=== PATIENT | female | born 1980 | race Asian ===

== ENCOUNTER 2016-10-12 10:18 | Inpatient (IN) | payer OTHER ==
[~2016-10-12] VITALS: Ht 165.1 cm; Wt 75.9 kg
[2016-10-12] MEDS ORDERED: LACTATED RINGERS 1,000 ML IV SCH ×2 (10:44→11:00)
[2016-10-12] MEDS ORDERED: OXYTOCIN 30U/ 0.9% NaCL 500ML 500 ML IV SCH (10:44)
[2016-10-12 10:47] VITALS: BP 107/72
[2016-10-12] MEDS ORDERED: SODIUM CITRATE/CITRIC ACID 30 ML UDC PO ONE (11:00)
[2016-10-12] MEDS ORDERED: LACTATED RINGERS 1,000 ML IVBOLUS ONE (11:00)
[2016-10-12] MEDS ORDERED: METOCLOPRAMIDE 5 MG/ML, 2ML IV ONE (11:00)
[2016-10-12] MEDS ORDERED: OXYTOCIN 30U/ 0.9% NaCL 500ML 500 ML ONE (11:31)
[2016-10-12] MEDS ORDERED: METOCLOPRAMIDE 5 MG/ML, 2ML ONE (11:31)
[2016-10-12] MEDS ORDERED: SODIUM CITRATE/CITRIC ACID 30 ML UDC ONE (11:31)
[2016-10-12] MEDS ORDERED: morphine SULFATE/PF 0.5 MG/ML, 10ML ONE (12:00)
[2016-10-12] MEDS ORDERED: NEWBORN KIT ONE (12:26)
[2016-10-12] MEDS ORDERED: CEFAZOLIN 1,000 MG ONE (12:36)
[2016-10-12] MEDS ORDERED: PHENYLEPHRINE 10 MG/ML ONE (12:36)
[2016-10-12] MEDS ORDERED: EPHEDRINE 50 MG/ML, 1ML ONE (12:36)
[2016-10-12] MEDS ORDERED: MISOPROSTOL 200 MCG TABLET PR PRN (14:00)
[2016-10-12] MEDS ORDERED: CALCIUM CARBONATE 500 MG TAB.CHEW PO PRN (14:00)
[2016-10-12] MEDS ORDERED: ONDANSETRON 2MG/ML, 2ML IV PRN (14:00)
[2016-10-12] MEDS ORDERED: ACETAMINOPHEN 325 MG TABLET PO PRN ×2 (14:00)
[2016-10-12] MEDS ORDERED: METOCLOPRAMIDE 5 MG/ML, 2ML IV PRN (14:00)
[2016-10-12] MEDS ORDERED: HYDROcodone/APAP 5/325 TABLET PO PRN ×2 (14:00)
[2016-10-12] MEDS ORDERED: DOCUSATE 100 MG CAPSULE PO PRN (14:00)
[2016-10-12] MEDS: LACTATED RINGERS 1,000 ML IV SCH ×3 (14:00→22:00)
[2016-10-12] MEDS ORDERED: DIPH,PERTUSS(ACELL),TET VAC/PF NC IM-VACC PRN (14:00)
[2016-10-12] MEDS ORDERED: BISACODYL 10 MG SUPP PR PRN (14:00)
[2016-10-12] MEDS ORDERED: METHYLERGONOVINE 0.2 MG/ML IM PRN (14:00)
[2016-10-12] MEDS ORDERED: MEASLES,MUMPS&RUBELLA VACC/PF 0.5 ML SQ-VACC PRN (14:00)
[2016-10-12] MEDS ORDERED: GLYCERIN ADULT SUPP PR PRN (14:00)
[2016-10-12] MEDS ORDERED: CARBOPROST TROMETHAMINE 250 MCG/ML, 1ML IM PRN (14:00)
[2016-10-12] MEDS ORDERED: SIMETHICONE 80 MG CHEW TAB PO PRN (14:00)
[2016-10-12] MEDS: OXYTOCIN 30U/ 0.9% NaCL 500ML 500 ML IV SCH (14:00)
[2016-10-12 16:30] VITALS: BP 101/63
[2016-10-12] MEDS: KETOROLAC 30 MG/1 ML IV SCH (17:34)
[2016-10-12 19:55] VITALS: BP 102/67
[2016-10-13] MEDS: KETOROLAC 30 MG/1 ML IV SCH ×3 (00:07→12:34)
[2016-10-13 00:10] VITALS: BP 103/61
[2016-10-13] MEDS: LACTATED RINGERS 1,000 ML IV SCH ×6 (06:00→22:00)
[2016-10-13 08:00] VITALS: BP 93/61
[2016-10-13] MEDS ORDERED: PRENATAL VIT/IRON/FA 1 EACH TABLET PO SCH (09:00)
[2016-10-13] MEDS: OXYTOCIN 30U/ 0.9% NaCL 500ML 500 ML IV SCH ×3 (10:00→20:00)
[2016-10-13 12:00] VITALS: BP 100/64
[2016-10-13] MEDS ORDERED: KETOROLAC 30 MG/1 ML ONE (12:30)
[2016-10-13 21:40] VITALS: BP 105/67
[2016-10-13] MEDS: IBUPROFEN 600 MG TABLET PO PRN (21:52)
[2016-10-14] MEDS: LACTATED RINGERS 1,000 ML IV SCH ×2 (00:58→00:59)
[2016-10-14] MEDS: OXYTOCIN 30U/ 0.9% NaCL 500ML 500 ML IV SCH (00:59)
[2016-10-14] MEDS: IBUPROFEN 600 MG TABLET PO PRN ×2 (05:33→14:18)
[2016-10-14 06:45] VITALS: BP 94/60
[2016-10-14] MEDS ORDERED: IBUP-1222 PO (15:32)
[2016-10-14] MEDS ORDERED: HYDR-3240 PO (15:32)
[2016-10-14] MEDS ORDERED: DOCU-30 PO (15:33)
== END 2016-10-14 16:30 | disposition home or self-care (01) | DRG 766 ==
LOC: LDIP 10:18 → 2NW 16:25
PROVIDERS: ADMIT Student in an Organized Health Care Education/Training Program; ATTEND Student in an Organized Health Care Education/Training Program
PROC: 10D00Z1 Extraction of Products of Conception, Low, Open Approach (ICD-10-PCS; principal; 2016-10-12)
PROC: 0UB70ZZ Excision of Bilateral Fallopian Tubes, Open Approach (ICD-10-PCS; 2016-10-12)
DX: O24.420 Gestational diabetes mellitus in childbirth, diet controlled (principal); O34.211 Maternal care for low transverse scar from previous cesarean delivery; O99.824 Streptococcus B carrier state complicating childbirth; O35.8XX0 Maternal care for other (suspected) fetal abnormality and damage, not applicable or unspecified; Z37.0 Single live birth; Z3A.39 39 weeks gestation of pregnancy; Z30.2 Encounter for sterilization; Z91.013 Allergy to seafood; Z91.018 Allergy to other foods; Z23 Encounter for immunization; Z82.3 Family history of stroke; Z83.3 Family history of diabetes mellitus
CPT/HCPCS: 36415; 85025; 86850; 86900; 88302; 90715; J0690; J1885; J2274; J2370; J2590; J2765; J7120